=== PATIENT | female | born 1945 | race Caucasian/White ===

== ENCOUNTER → 2018-09-10 | Outpatient (CLI) | payer MEDICARE, BC ==
[~2018-09-10] MED LIST: AMBIEN5 MG PO; ASCRIPTIN 325325 MG PO; CENTRUM SILVER1 EAC1 PO; ESCITALOPRAM OX10 MG PO; ESTRADIOL1 MG PO; EXFORGE 10-3201 EACH PO; METOPROLOL TART50 MG PO; SIMVASTATIN40 MG PO; SPIRONOLACTONE25 MG PO; SYNTHROID137 MCG PO; TRICOR145 MG PO
--- NOTE | 2018-09-10 14:53 | Diagnostic Imaging Report ---
EXAM: BONE MINERAL DENSITY HISTORY: Bone mineralization evaluation COMPARISON: None DISCUSSION: Evaluation of the left hip and lumbar spine was performed utilizing DEXA Hologic bone densitometer. The study is technically adequate. Left hip femoral neck bone mineral density: 0.88 g/cm2, T-score is 0.3, Z-score is 2.3. Left hip total bone mineral density: 0.85 g/cm2, T-score is -0.8, Z-score is 1.0. Lumbar spine total bone mineral density: 1.23 gm/cm2, T-score is 1.7, Z-score is 4.1. Impression: Bone mineralization by WHO Classification is normal, the fracture risk is not increased. Signed by: Dr. Beltran Eldridge M.D. on 09/10/2018 2:50 PM
--- NOTE | 2018-09-24 08:28 | Diagnostic Imaging Report ---
#[id number] - MGSCRBIL #BILATERAL DIGITAL SCREENING MAMMOGRAM WITH CAD: 09/10/2018 CLINICAL: Routine screening. Comparison is made to exams dated: 10/24/2012 mammogram, 09/01/2011 mammogram and 05/19/2010 mammogram - [facility]. Current study contains 6 films. There are scattered fibroglandular elements in both breasts. Current study was also evaluated with a Computer Aided Detection (CAD) system. There are benign calcifications in both breasts. There also is a biopsy clip in the left breast. No significant masses, calcifications, or other findings are seen in either breast. There has been no significant interval change. IMPRESSION: BENIGN There is no mammographic evidence of malignancy. A 1 year screening mammogram is recommended. The patient will be notified by letter of the results. [place] sparks/alice:09/23/2018 13:12:59 [employer]ist: Kassie ECHOLS(Yemi)(Santosh), [facility] letter sent: Compared to Prior B9 Mammogram BI-RADS: 2 Benign
== END ==
LOC: MAMMO 13:18
DX: Z12.31 Encounter for screening mammogram for malignant neoplasm of breast (principal); M89.9 Disorder of bone, unspecified
CPT/HCPCS: 77067; 77080